=== PATIENT | female | born 1955 | race Caucasian/White ===

== ENCOUNTER 2016-12-01 17:58 | Emergency (ER) | payer MEDICAID ==
[~2016-12-01] VITALS: Ht 162.6 cm; Wt 71.2 kg
[~2016-12-01 17:58] MED LIST: ALEN35TA6 PO; CEFD300C2 PO; LACT1CAP24 PO; LISI-167 PO; NAPR500T3 PO; OXYC5TAB3 PO
[2016-12-01 18:34] LABS: BLOOD UREA NITROGEN 21 mg/dL (7-18)
[2016-12-01 19:26] VITALS: BP 162/76
== END 2016-12-01 19:55 | disposition home or self-care (01) ==
LOC: ED 18:49
DX: I89.0 Lymphedema, not elsewhere classified (principal); J44.9 Chronic obstructive pulmonary disease, unspecified; M54.9 Dorsalgia, unspecified; G89.29 Other chronic pain; I12.9 Hypertensive chronic kidney disease with stage 1 through stage 4 chronic kidney disease, or unspecified chronic kidney disease; N18.9 Chronic kidney disease, unspecified; F17.200 Nicotine dependence, unspecified, uncomplicated
CPT/HCPCS: 36415; 80048; 82040; 85025

== ENCOUNTER 2016-12-18 10:51 | Day surgery (SDC) | payer MEDICAID ==
[~2016-12-18] VITALS: Ht 165.1 cm; Wt 66.5 kg
[~2016-12-18 10:51] MED LIST changes: -CEFD300C2 PO; +CEFD300C37 PO
[2016-12-18] MEDS ORDERED: LACTATED RINGERS 1,000 ML IV SCH (11:57)
[2016-12-18 12:19] VITALS: BP 129/79
[2016-12-18] MEDS ORDERED: SODIUM CHLORIDE 0.9% IV ONE (12:30)
[2016-12-18] MEDS ORDERED: MITOMYCIN IV ONE (12:30)
[2016-12-18] MEDS ORDERED: FENTANYL PF 250 MCG/5ML ONE (13:01)
[2016-12-18] MEDS ORDERED: MIDAZOLAM 1 MG/ML, 2ML ONE (13:01)
[2016-12-18] MEDS ORDERED: PROPOFOL 10 MG/ML, 20ML ONE (13:15)
[2016-12-18] MEDS ORDERED: ONDANSETRON 2MG/ML, 2ML ONE (13:15)
[2016-12-18] MEDS ORDERED: DEXAMETHASONE 4 MG/ML, 1ML ONE (13:15)
[2016-12-18] MEDS ORDERED: CEFAZOLIN 1,000 MG ONE (13:15)
[2016-12-18] MEDS ORDERED: KETAMINE 10 MG/ML, 20ML ONE (13:52)
[2016-12-18] MEDS ORDERED: OXYcodone 5 MG/5 ML ORAL.SOL UDC ONE (14:25)
[2016-12-18] MEDS ORDERED: ACETAMINOPHEN 650 MG/20.3 ML UDC ONE (14:25)
[2016-12-18] MEDS ORDERED: OPIUM/BELLADONNA SUPP.RECT 16.2-60 MG ONE (14:25)
[2016-12-18] MEDS ORDERED: FENTANYL PF 100 MCG/2ML ONE (14:25)
[2016-12-18] MEDS: FENTANYL PF 100 MCG/2ML IV PRN ×2 (14:26→14:35)
[2016-12-18] MEDS ORDERED: ACETAMINOPHEN 325 MG TABLET PO PRN (14:30)
[2016-12-18] MEDS ORDERED: OXYcodone 5 MG/5 ML ORAL.SOL UDC PO PRN (14:30)
[2016-12-18] MEDS ORDERED: PROMETHAZINE 25 MG/ML, 1ML IV PRN (14:30)
[2016-12-18] MEDS ORDERED: hydrALAzine 20 MG/ML, 1ML IV PRN (14:30)
[2016-12-18] MEDS ORDERED: HYDROmorphone 1 MG/ML, 1ML IV PRN (14:30)
[2016-12-18] MEDS ORDERED: OPIUM/BELLADONNA SUPP.RECT 16.2-60 MG PR ONE (15:00)
[2016-12-18] MEDS ORDERED: hydrALAzine 20 MG/ML, 1ML ONE (15:13)
== END 2016-12-18 18:00 | disposition home or self-care (01) ==
LOC: OUT 10:51
PROVIDERS: ATTEND Urology
DX: C67.1 Malignant neoplasm of dome of bladder (principal); N13.2 Hydronephrosis with renal and ureteral calculous obstruction; I10 Essential (primary) hypertension; M81.0 Age-related osteoporosis without current pathological fracture; Z88.0 Allergy status to penicillin; F17.210 Nicotine dependence, cigarettes, uncomplicated; Z90.710 Acquired absence of both cervix and uterus
CPT/HCPCS: 50389; 51720; 52240; 52332; 74000; 76000; 88304; 88305; 93005; C1769; C2617; J0360; J0690; J1100; J2250; J2405; J2704; J3010; J7120

== ENCOUNTER 2016-12-27 08:52 | Inpatient (IN) | payer MEDICAID ==
[~2016-12-27] VITALS: Ht 165.1 cm; Wt 68.7 kg
[2016-12-27] MEDS ORDERED: SODIUM CHLORIDE 0.9% 1,000 ML IV ONE (09:05)
[2016-12-27] MEDS ORDERED: ONDANSETRON 2MG/ML, 2ML ONE (09:22)
[2016-12-27] MEDS ORDERED: MORPHINE SULFATE 4 MG/ML, 1ML ONE ×2 (09:22→10:57)
[2016-12-27] MEDS: MORPHINE SULFATE 4 MG/ML, 1ML IVPush PRN ×2 (09:23→10:58)
[2016-12-27] MEDS ORDERED: ONDANSETRON 2MG/ML, 2ML IVPush ONE (09:30)
[2016-12-27] MEDS ORDERED: SODIUM CHLORIDE FLUSH 10ML SYR IVF ONE (09:30)
[2016-12-27 09:48] LABS: BLOOD UREA NITROGEN 19 mg/dL (7-18)
[2016-12-27 10:10] LABS: PATH.CAST-FLAG NOT PRESENT; SPERM-FLAG NOT PRESENT; SRC-FLAG NOT PRESENT; XTAL-FLAG NOT PRESENT; YLC-FLAG NOT PRESENT
[2016-12-27] MEDS ORDERED: CEFTRIAXONE PMX 1GM/50ML 50 ML ONE (10:52)
[2016-12-27] MEDS ORDERED: CEFTRIAXONE PMX 1GM/50ML 50 ML IV ONE (11:00)
[2016-12-27] MEDS ORDERED: DOCUSATE 100 MG CAPSULE PO PRN (13:00)
[2016-12-27] MEDS ORDERED: HEPARIN 5,000 UNITS/ML, 1ML SQ SCH (13:00)
[2016-12-27] MEDS ORDERED: ONDANSETRON ODT 4 MG PO PRN (13:00)
[2016-12-27] MEDS ORDERED: LABETALOL 5MG/ML, 20ML IVPush PRN (13:00)
[2016-12-27] MEDS ORDERED: ONDANSETRON 2MG/ML, 2ML IVPush PRN (13:00)
[2016-12-27] MEDS ORDERED: POLYETHYLENE GLYCOL 17 GM PACKET PO PRN (13:00)
[2016-12-27] MEDS ORDERED: BISACODYL 10 MG SUPP PR PRN (13:00)
[2016-12-27] MEDS: POTASSIUM CHLORIDE 10 MEQ in SODIUM CHLORIDE 0.9% 1,000 ML IV SCH (14:44)
[2016-12-27] MEDS: CEFTRIAXONE PMX 1GM/50ML 50 ML IV SCH (14:45)
[2016-12-27] MEDS: morphine SULFATE 10 MG/ML, 1ML IVPush PRN (14:54)
[2016-12-27 17:06] VITALS: BP 109/63
[2016-12-27 19:36] VITALS: BP 121/68
[2016-12-27] MEDS: OXYcodone IR 5MG TABLET PO PRN (19:38)
[2016-12-27] MEDS: HEPARIN 5,000 UNITS/ML, 1ML SQ SCH (21:42)
[2016-12-28 01:36] VITALS: BP 119/53
[2016-12-28] MEDS: OXYcodone IR 5MG TABLET PO PRN (01:47)
[2016-12-28] MEDS: POTASSIUM CHLORIDE 10 MEQ in SODIUM CHLORIDE 0.9% 1,000 ML IV SCH (01:54)
[2016-12-28 06:10] LABS: BLOOD UREA NITROGEN 20 mg/dL (7-18)
[2016-12-28] MEDS ORDERED: MORPHINE SULFATE 4 MG/ML, 1ML ONE (06:10)
[2016-12-28] MEDS: morphine SULFATE 10 MG/ML, 1ML IVPush PRN ×3 (06:13→18:55)
[2016-12-28 07:34] VITALS: BP 117/56
[2016-12-28] MEDS: HEPARIN 5,000 UNITS/ML, 1ML SQ SCH ×3 (09:33→22:01)
[2016-12-28] MEDS ORDERED: FUROSEMIDE 20 MG/2 ML ONE (10:01)
[2016-12-28 19:14] VITALS: BP 118/75
[2016-12-29] MEDS: morphine SULFATE 10 MG/ML, 1ML IVPush PRN (01:09)
[2016-12-29 01:18] VITALS: BP 118/73
[2016-12-29] MEDS: OXYcodone IR 5MG TABLET PO PRN ×3 (06:31→22:59)
[2016-12-29] MEDS: HEPARIN 5,000 UNITS/ML, 1ML SQ SCH ×3 (07:00→23:23)
[2016-12-29 07:56] VITALS: BP 116/72
[2016-12-29 08:00] LABS: BLOOD UREA NITROGEN 20 mg/dL (7-18)
[2016-12-29] MEDS ORDERED: LIDOCAINE 1%, 20ML ONE (13:38)
[2016-12-29] MEDS ORDERED: MIDAZOLAM 1 MG/ML, 5ML ONE (13:49)
[2016-12-29] MEDS ORDERED: FENTANYL PF 100 MCG/2ML ONE (13:49)
[2016-12-29] MEDS ORDERED: NALOXONE 1 MG/ML, 2ML ONE (13:49)
[2016-12-29] MEDS ORDERED: FLUMAZENIL 0.1 MG/1 ML, 5ML ONE (13:50)
[2016-12-29] MEDS ORDERED: VISIPAQUE 270 MG/ML, 50ML BOTTLE ONE (14:25)
[2016-12-29 15:14] VITALS: BP 115/75
[2016-12-29] MEDS: CEFTRIAXONE PMX 1GM/50ML 50 ML IV SCH (16:58)
[2016-12-29 20:00] VITALS: BP 114/64
[2016-12-30 01:14] VITALS: BP 114/67
[2016-12-30] MEDS: OXYcodone IR 5MG TABLET PO PRN ×3 (05:58→14:42)
[2016-12-30 07:50] VITALS: BP 102/56
[2016-12-30] MEDS: HEPARIN 5,000 UNITS/ML, 1ML SQ SCH (07:54)
[2016-12-30] MEDS ORDERED: CEFD300C37 PO (11:39)
[2016-12-30] MEDS ORDERED: OXYC5TAB3 PO (11:39)
[2016-12-30] MEDS: CEFTRIAXONE PMX 1GM/50ML 50 ML IV SCH (13:25)
== END 2016-12-30 15:50 | disposition home or self-care (01) | DRG 699 ==
LOC: ED 09:33 → EDIP 11:21 → 3NE 12:45 → 3NW 17:02 → DCLOUNGE 12-30 15:03
PROVIDERS: ADMIT Internal Medicine; ATTEND Internal Medicine
PROC: 0T9330Z Drainage of Right Kidney Pelvis with Drainage Device, Percutaneous Approach (ICD-10-PCS; principal; 2016-12-29)
DX: T83.112A Breakdown (mechanical) of indwelling ureteral stent, initial encounter (principal); N39.0 Urinary tract infection, site not specified; N13.30 Unspecified hydronephrosis; N18.4 Chronic kidney disease, stage 4 (severe); C67.9 Malignant neoplasm of bladder, unspecified; J44.9 Chronic obstructive pulmonary disease, unspecified; I12.9 Hypertensive chronic kidney disease with stage 1 through stage 4 chronic kidney disease, or unspecified chronic kidney disease; M81.0 Age-related osteoporosis without current pathological fracture; G89.29 Other chronic pain; Y83.8 Other surgical procedures as the cause of abnormal reaction of the patient, or of later complication, without mention of misadventure at the time of the procedure; Z80.52 Family history of malignant neoplasm of bladder; Z87.891 Personal history of nicotine dependence; Z90.710 Acquired absence of both cervix and uterus; Z80.1 Family history of malignant neoplasm of trachea, bronchus and lung; Z88.0 Allergy status to penicillin; Z79.899 Other long term (current) drug therapy; Y92.89 Other specified places as the place of occurrence of the external cause
CPT/HCPCS: 36415; 50432; 74176; 78708; 80048; 81001; 82040; 85025; 87086; 96361; 96365; 96375; 99156; 99157; C1894; J0696; J1644; J2250; J2405; J3010; J3480; J3490; Q9966; A9562; C1729; C1769; C9898; J1940; J2270; J2310; J7030

== ENCOUNTER 2017-01-14 18:06 | Emergency (ER) | payer MEDICAID ==
[~2017-01-14] VITALS: Ht 162.6 cm; Wt 62.3 kg
[2017-01-14] MEDS ORDERED: SODIUM CHLORIDE 0.9% 1,000 ML IV ONE (18:33)
[2017-01-14] MEDS ORDERED: MORPHINE SULFATE 4 MG/ML, 1ML ONE ×2 (18:57→19:44)
[2017-01-14] MEDS ORDERED: ONDANSETRON 2MG/ML, 2ML ONE (18:57)
[2017-01-14 19:00] LABS: BLOOD UREA NITROGEN 20 mg/dL (7-18)
[2017-01-14] MEDS ORDERED: ONDANSETRON 2MG/ML, 2ML IVPush ONE (19:00)
[2017-01-14] MEDS ORDERED: SODIUM CHLORIDE 0.9% 1,000ML IVBOLUS ONE (19:00)
[2017-01-14] MEDS: MORPHINE SULFATE 4 MG/ML, 1ML IVPush PRN ×2 (19:13→19:48)
[2017-01-14] MEDS ORDERED: HYDROmorphone 1 MG/ML, 1ML ONE (19:59)
[2017-01-14] MEDS ORDERED: HYDROmorphone 1 MG/ML, 1ML IVPush PRN (20:00)
[2017-01-14 23:39] VITALS: BP 136/81
== END 2017-01-14 23:41 | disposition home or self-care (01) ==
LOC: ED 21:26
DX: N20.1 Calculus of ureter (principal); R33.9 Retention of urine, unspecified; Z85.51 Personal history of malignant neoplasm of bladder; E11.9 Type 2 diabetes mellitus without complications; J44.9 Chronic obstructive pulmonary disease, unspecified; I10 Essential (primary) hypertension; Z90.710 Acquired absence of both cervix and uterus; N19 Unspecified kidney failure
CPT/HCPCS: 36415; 74020; 76770; 80048; 81001; 82040; 85025; 87086; 96361; 96374; 96375; 96376; 99285; J1170; J2405; J7030

== ENCOUNTER 2017-01-24 14:54 | Emergency (ER) | payer MEDICAID ==
[~2017-01-24] VITALS: Ht 162.6 cm; Wt 59.3 kg
[2017-01-24] MEDS ORDERED: HYDROmorphone 1 MG/ML, 1ML ONE ×2 (15:14→17:57)
[2017-01-24] MEDS: HYDROmorphone 1 MG/ML, 1ML IVPush PRN ×2 (15:24→18:01)
[2017-01-24] MEDS ORDERED: SODIUM CHLORIDE 0.9% 1,000ML IVBOLUS ONE (15:30)
[2017-01-24] MEDS ORDERED: PLEASE ENTER HEIGHT AND WEIGHT MC SCH (15:30)
[2017-01-24] MEDS ORDERED: SODIUM CHLORIDE FLUSH 10ML SYR IVF ONE (15:30)
[2017-01-24 15:36] LABS: BLOOD UREA NITROGEN 21 mg/dL (7-18)
[2017-01-24 15:40] LABS: ASPARTATE AMINO TRANSFERASE 41 U/L (15-37)
[2017-01-24] MEDS ORDERED: CEFD300C37 PO (16:45)
[2017-01-24 18:57] VITALS: BP 152/80
== END 2017-01-24 20:03 | disposition home or self-care (01) ==
LOC: ED 16:25
DX: G89.18 Other acute postprocedural pain (principal); R10.9 Unspecified abdominal pain; E11.9 Type 2 diabetes mellitus without complications; I10 Essential (primary) hypertension; J44.9 Chronic obstructive pulmonary disease, unspecified
CPT/HCPCS: 36415; 50431; 74000; 76770; 80053; 83690; 85025; 85610; 96361; 96374; 96376; 99285; J1170; J7030

== ENCOUNTER 2017-02-14 07:09 | Inpatient (IN) | payer MEDICAID ==
[~2017-02-14] VITALS: Ht 165.1 cm; Wt 61.0 kg
[2017-02-14] MEDS ORDERED: MORPHINE SULFATE 4 MG/ML, 1ML ONE ×2 (07:58→09:12)
[2017-02-14] MEDS ORDERED: ONDANSETRON 2MG/ML, 2ML ONE (07:59)
[2017-02-14] MEDS ORDERED: ONDANSETRON 2MG/ML, 2ML IVPush ONE (08:00)
[2017-02-14] MEDS ORDERED: SODIUM CHLORIDE 0.9% 1,000ML IVBOLUS ONE ×3 (08:00→20:00)
[2017-02-14] MEDS ORDERED: SODIUM CHLORIDE FLUSH 10ML SYR IVF ONE (08:00)
[2017-02-14] MEDS: MORPHINE SULFATE 4 MG/ML, 1ML IVPush PRN ×2 (08:01→09:18)
[2017-02-14 08:32] LABS: ASPARTATE AMINO TRANSFERASE 37 U/L (15-37); BLOOD UREA NITROGEN 30 mg/dL (7-18)
[2017-02-14] MEDS ORDERED: CEFTRIAXONE PMX 1GM/50ML 50 ML IV ONE (09:00)
[2017-02-14] MEDS ORDERED: CEFTRIAXONE PMX 1GM/50ML 50 ML ONE (09:12)
[2017-02-14] MEDS ORDERED: VISIPAQUE 270 MG/ML, 50ML BOTTLE ONE (09:30)
[2017-02-14] MEDS ORDERED: OXYC15TA PO (09:47)
[2017-02-14] MEDS ORDERED: METH5TAB2 PO (09:47)
[2017-02-14] MEDS ORDERED: LIDOCAINE 1%, 20ML ONE (09:57)
[2017-02-14] MEDS ORDERED: MIDAZOLAM 1 MG/ML, 5ML ONE (10:23)
[2017-02-14] MEDS ORDERED: FLUMAZENIL 0.1 MG/1 ML, 5ML ONE (10:23)
[2017-02-14] MEDS ORDERED: FENTANYL PF 100 MCG/2ML ONE (10:23)
[2017-02-14] MEDS ORDERED: NALOXONE 1 MG/ML, 2ML ONE (10:23)
[2017-02-14] MEDS ORDERED: ACETAMINOPHEN 325 MG TABLET PO ONE (15:30)
[2017-02-14] MEDS ORDERED: SODIUM CHLORIDE 0.9% 1,000 ML IV ONE (15:32)
[2017-02-14] MEDS ORDERED: SODIUM CHLORIDE FLUSH 10ML SYR IVF PRN (16:00)
[2017-02-14] MEDS ORDERED: ACETAMINOPHEN 325 MG TABLET ONE (16:32)
[2017-02-14] MEDS ORDERED: BISACODYL 10 MG SUPP PR PRN (17:00)
[2017-02-14] MEDS: SODIUM CHLORIDE 0.9% 1,000 ML IV SCH ×2 (17:00→23:40)
[2017-02-14] MEDS ORDERED: TEMAZEPAM 15 MG CAPSULE PO PRN (17:00)
[2017-02-14] MEDS ORDERED: CEFTRIAXONE PMX 1GM/50ML 50 ML IV SCH (17:00)
[2017-02-14] MEDS ORDERED: ENALAPRILAT 1.25 MG/ML, 2ML IVPush PRN ×2 (17:00→21:17)
[2017-02-14] MEDS ORDERED: POLYETHYLENE GLYCOL 17 GM PACKET PO PRN (17:00)
[2017-02-14] MEDS ORDERED: hydrALAzine 20 MG/ML, 1ML IVPush PRN (17:00)
[2017-02-14] MEDS ORDERED: ONDANSETRON 2MG/ML, 2ML IVPush PRN (17:00)
[2017-02-14] MEDS ORDERED: ACETAMINOPHEN 325 MG TABLET PO PRN (17:00)
[2017-02-14 20:50] VITALS: BP 111/58
[2017-02-14] MEDS: CEFTRIAXONE PMX 1GM/50ML 50 ML IV SCH (21:14)
[2017-02-15] MEDS: OXYcodone IR 5MG TABLET PO PRN ×4 (00:16→19:36)
[2017-02-15 02:50] VITALS: BP 117/65
[2017-02-15] MEDS: morphine SULFATE 10 MG/ML, 1ML IVPush PRN ×5 (04:23→20:27)
[2017-02-15 05:42] LABS: ASPARTATE AMINO TRANSFERASE 31 U/L (15-37); BLOOD UREA NITROGEN 25 mg/dL (7-18)
[2017-02-15 07:46] VITALS: BP 122/68
[2017-02-15] MEDS: SODIUM CHLORIDE 0.9% 1,000 ML IV SCH ×2 (08:14→15:02)
[2017-02-15] MEDS: CEFTRIAXONE PMX 1GM/50ML 50 ML IV SCH ×2 (08:23→19:36)
[2017-02-15] MEDS: SENNA/DOCUSATE TABLET PO SCH (08:23)
[2017-02-15] MEDS ORDERED: METHADONE 5 MG TABLET PO PRN (09:30)
[2017-02-15 12:37] VITALS: BP 125/74
[2017-02-15] MEDS ORDERED: METO50TA82 PO (14:27)
[2017-02-15] MEDS ORDERED: CEFD300C37 PO (14:29)
[2017-02-15] MEDS ORDERED: DOXY100C2 PO (14:29)
[2017-02-15] MEDS ORDERED: PRED5TAB19 PO (14:35)
[2017-02-15] MEDS ORDERED: LACT1CAP35 PO (14:36)
[2017-02-15] MEDS ORDERED: IPRA3AMP INH (14:38)
[2017-02-15] MEDS ORDERED: MAGNESIUM CITRATE 300ML ORAL SOL PO ONE (16:30)
[2017-02-15 19:30] VITALS: BP 110/67
[2017-02-15] MEDS ORDERED: ACETAMINOPHEN 325 MG TABLET PO PRN (19:30)
[2017-02-15] MEDS ORDERED: POLYETHYLENE GLYCOL 17 GM PACKET PO PRN (19:30)
[2017-02-15] MEDS: HEPARIN 5,000 UNITS/ML, 1ML SQ SCH (19:36)
[2017-02-15] MEDS ORDERED: ACETAMINOPHEN 325 MG TABLET PO ONE (20:00)
[2017-02-15 22:46] VITALS: BP 120/76
[2017-02-16] VITALS (8 sets, daily range): BP systolic 110–141; BP diastolic 71–89
[2017-02-16] MEDS: OXYcodone IR 5MG TABLET PO PRN (00:09)
[2017-02-16] MEDS: SODIUM CHLORIDE 0.9% 1,000 ML IV SCH ×3 (03:34→20:30)
[2017-02-16] MEDS: morphine SULFATE 10 MG/ML, 1ML IVPush PRN ×5 (04:27→21:19)
[2017-02-16 04:53] LABS: BLOOD UREA NITROGEN 19 mg/dL (7-18)
[2017-02-16] MEDS: HEPARIN 5,000 UNITS/ML, 1ML SQ SCH ×3 (08:40→20:29)
[2017-02-16] MEDS: CEFTRIAXONE PMX 1GM/50ML 50 ML IV SCH ×2 (08:40→20:29)
[2017-02-16] MEDS: SENNA/DOCUSATE TABLET PO SCH (08:40)
[2017-02-16] MEDS: CALCIUM CARBONATE 500 MG TAB.CHEW PO PRN ×2 (10:25→18:04)
[2017-02-16] MEDS: METHADONE 5 MG TABLET PO SCH ×2 (12:27→20:29)
[2017-02-16] MEDS: ONDANSETRON 2MG/ML, 2ML IVPush PRN (13:35)
[2017-02-16] MEDS ORDERED: METHADONE 5 MG TABLET PO PRN (15:00)
[2017-02-16] MEDS: BISACODYL 10 MG SUPP PR PRN (21:19)
[2017-02-17] MEDS: morphine SULFATE 10 MG/ML, 1ML IVPush PRN ×5 (00:29→23:00)
[2017-02-17 02:54] VITALS: BP 132/77
[2017-02-17] MEDS: METHADONE 5 MG TABLET PO SCH ×3 (04:36→21:14)
[2017-02-17] MEDS: ONDANSETRON 2MG/ML, 2ML IVPush PRN (04:40)
[2017-02-17 04:50] LABS: BLOOD UREA NITROGEN 12 mg/dL (7-18)
[2017-02-17 06:40] LABS: OCCBLD OBC PASS
[2017-02-17 07:45] VITALS: BP 149/85
[2017-02-17] MEDS: HEPARIN 5,000 UNITS/ML, 1ML SQ SCH ×2 (08:15→21:14)
[2017-02-17] MEDS: SENNA/DOCUSATE TABLET PO SCH (08:15)
[2017-02-17 11:44] LABS: PATH.CAST-FLAG NOT PRESENT; SPERM-FLAG NOT PRESENT; SRC-FLAG NOT PRESENT; XTAL-FLAG NOT PRESENT; YLC-FLAG NOT PRESENT
[2017-02-17] MEDS: OXYcodone IR 5MG TABLET PO PRN (11:50)
[2017-02-17] MEDS: CEFTRIAXONE PMX 1GM/50ML 50 ML IV SCH ×2 (12:12→23:39)
[2017-02-17 13:55] VITALS: BP 118/72
[2017-02-17 19:38] VITALS: BP 122/76
[2017-02-17] MEDS: BISACODYL 10 MG SUPP PR PRN (23:01)
[2017-02-18 02:08] VITALS: BP 122/81
[2017-02-18] MEDS: morphine SULFATE 10 MG/ML, 1ML IVPush PRN ×5 (02:56→19:19)
[2017-02-18 04:54] LABS: BLOOD UREA NITROGEN 10 mg/dL (7-18)
[2017-02-18] MEDS: METHADONE 5 MG TABLET PO SCH ×4 (04:54→22:12)
[2017-02-18 06:41] VITALS: BP 144/84
[2017-02-18] MEDS: HEPARIN 5,000 UNITS/ML, 1ML SQ SCH ×2 (08:04→22:12)
[2017-02-18] MEDS: SENNA/DOCUSATE TABLET PO SCH (08:04)
[2017-02-18] MEDS: CEFTRIAXONE PMX 1GM/50ML 50 ML IV SCH (11:15)
[2017-02-18 13:20] VITALS: BP 127/79
[2017-02-18] MEDS: OXYcodone IR 5MG TABLET PO PRN (15:17)
[2017-02-18] MEDS: AMPICILLIN/SULBACTAM 3 GM in SODIUM CHLORIDE 0.9% 100 ML IV SCH ×2 (15:18→22:12)
[2017-02-18 20:39] VITALS: BP 124/76
[2017-02-18 20:40] VITALS: BP 144/71
[2017-02-19] MEDS: OXYcodone IR 5MG TABLET PO PRN ×4 (00:32→20:40)
[2017-02-19 02:23] VITALS: BP 144/86
[2017-02-19] MEDS: morphine SULFATE 10 MG/ML, 1ML IVPush PRN ×3 (02:30→16:23)
[2017-02-19] MEDS: METHADONE 5 MG TABLET PO SCH ×4 (04:39→22:56)
[2017-02-19] MEDS: AMPICILLIN/SULBACTAM 3 GM in SODIUM CHLORIDE 0.9% 100 ML IV SCH ×3 (04:39→20:39)
[2017-02-19 06:36] VITALS: BP 133/84
[2017-02-19] MEDS: HEPARIN 5,000 UNITS/ML, 1ML SQ SCH ×2 (09:16→20:39)
[2017-02-19] MEDS: SENNA/DOCUSATE TABLET PO SCH (09:17)
[2017-02-19 14:27] VITALS: BP 142/79
[2017-02-19 18:44] VITALS: BP 133/75
[2017-02-20 01:44] VITALS: BP 138/84
[2017-02-20] MEDS: OXYcodone IR 5MG TABLET PO PRN ×2 (02:05→07:58)
[2017-02-20] MEDS: METHADONE 5 MG TABLET PO SCH ×4 (04:45→22:13)
[2017-02-20] MEDS: AMPICILLIN/SULBACTAM 3 GM in SODIUM CHLORIDE 0.9% 100 ML IV SCH ×3 (04:45→22:13)
[2017-02-20 07:17] VITALS: BP 125/73
[2017-02-20] MEDS: SENNA/DOCUSATE TABLET PO SCH (08:01)
[2017-02-20] MEDS: HEPARIN 5,000 UNITS/ML, 1ML SQ SCH ×2 (10:06→22:13)
[2017-02-20 12:24] VITALS: BP 120/74
[2017-02-20 19:13] VITALS: BP 120/77
[2017-02-20] MEDS: morphine SULFATE 10 MG/ML, 1ML IVPush PRN (19:57)
[2017-02-21 02:08] VITALS: BP 108/68
[2017-02-21] MEDS: OXYcodone IR 5MG TABLET PO PRN ×2 (02:30→13:17)
[2017-02-21] MEDS: METHADONE 5 MG TABLET PO SCH ×4 (05:24→21:54)
[2017-02-21] MEDS: AMPICILLIN/SULBACTAM 3 GM in SODIUM CHLORIDE 0.9% 100 ML IV SCH ×3 (05:24→21:54)
[2017-02-21 06:54] VITALS: BP 104/66
[2017-02-21] MEDS: HEPARIN 5,000 UNITS/ML, 1ML SQ SCH ×2 (10:11→21:54)
[2017-02-21] MEDS: SENNA/DOCUSATE TABLET PO SCH (10:11)
[2017-02-21 12:32] VITALS: BP 142/74
[2017-02-21 19:38] VITALS: BP 115/68
[2017-02-21] MEDS ORDERED: BISACODYL 10 MG SUPP PR PRN ×2 (21:00)
[2017-02-21] MEDS ORDERED: ONDANSETRON 2MG/ML, 2ML IVPush PRN ×2 (21:00)
[2017-02-21] MEDS ORDERED: ACETAMINOPHEN 325 MG TABLET PO PRN ×2 (21:00)
[2017-02-21] MEDS ORDERED: POLYETHYLENE GLYCOL 17 GM PACKET PO PRN ×2 (21:00)
[2017-02-21] MEDS ORDERED: TEMAZEPAM 15 MG CAPSULE PO PRN (21:00)
[2017-02-21] MEDS ORDERED: hydrALAzine 20 MG/ML, 1ML IVPush PRN (21:00)
[2017-02-21] MEDS ORDERED: ENALAPRILAT 1.25 MG/ML, 2ML IVPush PRN (21:00)
[2017-02-22 02:15] VITALS: BP 124/70
[2017-02-22] MEDS: METHADONE 5 MG TABLET PO SCH ×4 (05:08→22:16)
[2017-02-22] MEDS: AMPICILLIN/SULBACTAM 3 GM in SODIUM CHLORIDE 0.9% 100 ML IV SCH ×3 (05:09→21:26)
[2017-02-22 07:25] VITALS: BP 108/67
[2017-02-22] MEDS: SENNA/DOCUSATE TABLET PO SCH (09:49)
[2017-02-22] MEDS: HEPARIN 5,000 UNITS/ML, 1ML SQ SCH ×2 (09:49→21:27)
[2017-02-22 13:05] VITALS: BP 109/71
[2017-02-22 18:40] VITALS: BP 104/69
[2017-02-23 01:16] VITALS: BP 121/71
[2017-02-23] MEDS: METHADONE 5 MG TABLET PO SCH ×4 (04:03→21:24)
[2017-02-23] MEDS: AMPICILLIN/SULBACTAM 3 GM in SODIUM CHLORIDE 0.9% 100 ML IV SCH ×3 (05:30→21:25)
[2017-02-23 07:24] VITALS: BP 102/66
[2017-02-23] MEDS ORDERED: ONDANSETRON 8 MG, DEXAMETHASONE 12 MG in SODIUM CHLORIDE 0.9% 50 ML IVPB ONE (09:30)
[2017-02-23] MEDS: SENNA/DOCUSATE TABLET PO SCH (09:39)
[2017-02-23] MEDS: HEPARIN 5,000 UNITS/ML, 1ML SQ SCH ×2 (09:39→21:25)
[2017-02-23 09:47] LABS: BLOOD UREA NITROGEN 11 mg/dL (7-18)
[2017-02-23 09:51] LABS: ASPARTATE AMINO TRANSFERASE 58 U/L (15-37)
[2017-02-23] MEDS ORDERED: GEMCITABINE HCL IV ONE (10:00)
[2017-02-23] MEDS ORDERED: SODIUM CHLORIDE 0.9% IV ONE (10:00)
[2017-02-23 13:32] VITALS: BP 118/72
[2017-02-23 19:19] VITALS: BP 118/72
[2017-02-23] MEDS: CALCIUM CARBONATE 500 MG TAB.CHEW PO PRN (22:36)
[2017-02-24 02:27] VITALS: BP 113/71
[2017-02-24] MEDS: METHADONE 5 MG TABLET PO SCH ×4 (03:56→22:01)
[2017-02-24] MEDS: AMPICILLIN/SULBACTAM 3 GM in SODIUM CHLORIDE 0.9% 100 ML IV SCH ×3 (05:00→22:00)
[2017-02-24 05:51] LABS: BLOOD UREA NITROGEN 17 mg/dL (7-18)
[2017-02-24 07:36] VITALS: BP 103/61
[2017-02-24] MEDS: HEPARIN 5,000 UNITS/ML, 1ML SQ SCH ×2 (09:09→22:00)
[2017-02-24] MEDS: SENNA/DOCUSATE TABLET PO SCH (09:09)
[2017-02-24 13:15] VITALS: BP 100/66
[2017-02-24 19:00] VITALS: BP 123/74
[2017-02-25 02:16] VITALS: BP 102/61
[2017-02-25 04:52] LABS: BLOOD UREA NITROGEN 24 mg/dL (7-18)
[2017-02-25 04:57] LABS: ASPARTATE AMINO TRANSFERASE 101 U/L (15-37)
[2017-02-25] MEDS: METHADONE 5 MG TABLET PO SCH ×4 (05:28→23:26)
[2017-02-25] MEDS: AMPICILLIN/SULBACTAM 3 GM in SODIUM CHLORIDE 0.9% 100 ML IV SCH ×3 (05:28→21:27)
[2017-02-25 06:30] VITALS: BP 92/56
[2017-02-25] MEDS: SENNA/DOCUSATE TABLET PO SCH (11:42)
[2017-02-25] MEDS: HEPARIN 5,000 UNITS/ML, 1ML SQ SCH ×2 (11:43→23:26)
[2017-02-25] MEDS: CALCIUM CARBONATE 500 MG TAB.CHEW PO PRN (16:30)
[2017-02-25 18:55] VITALS: BP 96/63
[2017-02-26 02:35] VITALS: BP 108/70
[2017-02-26 05:02] LABS: ASPARTATE AMINO TRANSFERASE 120 U/L (15-37); BLOOD UREA NITROGEN 18 mg/dL (7-18)
[2017-02-26] MEDS: METHADONE 5 MG TABLET PO SCH ×3 (05:56→15:45)
[2017-02-26] MEDS: AMPICILLIN/SULBACTAM 3 GM in SODIUM CHLORIDE 0.9% 100 ML IV SCH ×2 (05:57→13:20)
[2017-02-26 07:20] VITALS: BP 96/63
[2017-02-26 08:05] LABS: TOTAL IRON BINDING CAPACITY 213 mcg/dL (250-450)
[2017-02-26] MEDS: SENNA/DOCUSATE TABLET PO SCH (08:38)
[2017-02-26 09:43] LABS: HEPATITIS C VIRUS ANTIBODY Nonreactive (Nonreactive)
[2017-02-26] MEDS: HEPARIN 5,000 UNITS/ML, 1ML SQ SCH (10:12)
[2017-02-26 13:17] VITALS: BP 90/54
[2017-02-26] MEDS ORDERED: AMPI3VIA IV (16:04)
== END 2017-02-26 18:00 | DRG 871 ==
LOC: ED 07:26 → EDIP 15:32 → 3NW 17:59
PROVIDERS: ADMIT Internal Medicine; ATTEND Internal Medicine
PROC: 0T25X0Z Change Drainage Device in Kidney, External Approach (ICD-10-PCS; principal; 2017-02-14)
PROC: 0T9B70Z Drainage of Bladder with Drainage Device, Via Natural or Artificial Opening (ICD-10-PCS; 2017-02-14)
PROC: 30233N1 Transfusion of Nonautologous Red Blood Cells into Peripheral Vein, Percutaneous Approach (ICD-10-PCS; 2017-02-15)
DX: A41.9 Sepsis, unspecified organism (principal); N17.0 Acute kidney failure with tubular necrosis; E43 Unspecified severe protein-calorie malnutrition; N18.4 Chronic kidney disease, stage 4 (severe); N39.0 Urinary tract infection, site not specified; N13.30 Unspecified hydronephrosis; C67.9 Malignant neoplasm of bladder, unspecified; I12.9 Hypertensive chronic kidney disease with stage 1 through stage 4 chronic kidney disease, or unspecified chronic kidney disease; K59.00 Constipation, unspecified; M81.0 Age-related osteoporosis without current pathological fracture; N20.0 Calculus of kidney; B95.5 Unspecified streptococcus as the cause of diseases classified elsewhere; D64.9 Anemia, unspecified; D72.819 Decreased white blood cell count, unspecified; G89.29 Other chronic pain; Z90.710 Acquired absence of both cervix and uterus; Z88.0 Allergy status to penicillin; Z87.891 Personal history of nicotine dependence; Z82.49 Family history of ischemic heart disease and other diseases of the circulatory system; Z93.6 Other artificial openings of urinary tract status; Z68.22 Body mass index [BMI] 22.0-22.9, adult
CPT/HCPCS: 36415; 50432; 71010; 74000; 76700; 80048; 80053; 80061; 80074; 81001; 82272; 82550; 83036; 83540; 83550; 83605; 83735; 84100; 84145; 84439; 84443; 85014; 85018; 85025; 86850; 86900; 86923; 87040; 87077; 87086; 87186; 93005; 96361; 96374; 96375; 96376; 99156; 99157; C1894; J0295; J0696; J1100; J1644; J2250; J2405; J3010; J3490; Q9966; C1729; C1769; J2270; J2310; J7030; J7050; J9201; P9016

== ENCOUNTER → 2017-04-08 | Outpatient (CLI) | payer MEDICAID ==
[~2017-04-08] MED LIST changes: +AMPI3VIA IV; +DOXY100C2 PO; +IPRA3AMP INH; +LACT1CAP35 PO; +METH5TAB2 PO; +METO50TA82 PO; +OXYC15TA PO; +PRED5TAB19 PO
== END | disposition home or self-care (01) ==
LOC: CFH 12:41
PROVIDERS: ATTEND Internal Medicine Hematology & Oncology
DX: R22.42 Localized swelling, mass and lump, left lower limb (principal)

== ENCOUNTER 2017-04-17 15:43 | Emergency (ER) | payer MEDICAID ==
[~2017-04-17] VITALS: Ht 165.1 cm; Wt 56.8 kg
[2017-04-17] MEDS ORDERED: SODIUM CHLORIDE FLUSH 10ML SYR IVF ONE (16:00)
[2017-04-17] MEDS ORDERED: ONDANSETRON 2MG/ML, 2ML IVPush ONE (16:00)
[2017-04-17] MEDS ORDERED: HYDROmorphone 1 MG/ML, 1ML ONE ×3 (16:17→18:38)
[2017-04-17] MEDS ORDERED: ONDANSETRON 2MG/ML, 2ML ONE (16:17)
[2017-04-17] MEDS: HYDROmorphone 1 MG/ML, 1ML IVPush PRN ×2 (16:25→18:23)
[2017-04-17 16:29] LABS: HEMATOCRIT 37.2 % (34.6-47.8); HEMOGLOBIN 12.7 g/dL (11.7-16.4); WHITE BLOOD COUNT 4.7 x10^3/uL (3.4-10)
[2017-04-17 16:31] LABS: BLOOD UREA NITROGEN 16 mg/dL (7-18)
[2017-04-17 16:34] LABS: ASPARTATE AMINO TRANSFERASE 53 U/L (15-37)
[2017-04-17] MEDS ORDERED: CEFTRIAXONE PMX 1GM/50ML 50 ML IV ONE (17:30)
[2017-04-17] MEDS ORDERED: CEFTRIAXONE PMX 1GM/50ML 50 ML ONE (17:53)
[2017-04-17] MEDS ORDERED: HYDROmorphone 1 MG/ML, 1ML IVPush PRN (18:30)
[2017-04-17 20:47] VITALS: BP 116/74
[2017-04-20] MEDS ORDERED: CEFD300C37 PO (09:26)
== END 2017-04-17 20:49 | disposition home or self-care (01) ==
LOC: ED 16:11
DX: N30.90 Cystitis, unspecified without hematuria (principal); Z87.442 Personal history of urinary calculi; Z85.51 Personal history of malignant neoplasm of bladder; Z90.710 Acquired absence of both cervix and uterus; Z90.721 Acquired absence of ovaries, unilateral; Z98.890 Other specified postprocedural states; Z88.0 Allergy status to penicillin
CPT/HCPCS: 36415; 74176; 80053; 81001; 83690; 85025; 87077; 87086; 87186; 93005; 96365; 96375; 96376; 99285; J0696; J1170; J2405

== ENCOUNTER → 2017-05-07 | Outpatient (CLI) | payer MEDICAID ==
[2017-05-07 10:19] LABS: HEMATOCRIT 33.3 % (34.6-47.8); HEMOGLOBIN 11.4 g/dL (11.7-16.4); WHITE BLOOD COUNT 2.8 x10^3/uL (3.4-10)
== END | disposition home or self-care (01) ==
LOC: STAR 08:56
PROVIDERS: ATTEND Urology
DX: Z01.818 Encounter for other preprocedural examination (principal); R94.31 Abnormal electrocardiogram [ECG] [EKG]; N20.0 Calculus of kidney; D41.4 Neoplasm of uncertain behavior of bladder; R31.0 Gross hematuria
CPT/HCPCS: 36415; 85025; 85610; 85730; 93005

== ENCOUNTER 2017-05-14 05:49 | Inpatient (IN) | payer MEDICAID ==
[~2017-05-14] VITALS: Ht 162.6 cm; Wt 62.0 kg
[2017-05-14] MEDS ORDERED: LACTATED RINGERS 1,000 ML IV SCH ×2 (06:28→13:00)
[2017-05-14 06:32] VITALS: BP 105/67
[2017-05-14] MEDS ORDERED: LIDOCAINE GEL 2%, 5ML ONE (07:12)
[2017-05-14] MEDS ORDERED: MIDAZOLAM 1 MG/ML, 2ML ONE ×2 (07:12→10:05)
[2017-05-14] MEDS ORDERED: FENTANYL PF 100 MCG/2ML ONE ×4 (07:12→10:05)
[2017-05-14] MEDS ORDERED: DEXAMETHASONE 4 MG/ML, 1ML ONE (07:13)
[2017-05-14] MEDS ORDERED: ONDANSETRON 2MG/ML, 2ML ONE ×2 (07:13→07:32)
[2017-05-14] MEDS ORDERED: PROPOFOL 10 MG/ML, 20ML ONE (07:13)
[2017-05-14] MEDS ORDERED: CEFAZOLIN 1,000 MG ONE (07:13)
[2017-05-14] MEDS ORDERED: LIDOCAINE-MPF 2% ,5ML ONE (07:15)
[2017-05-14] MEDS ORDERED: SUCCINYLCHOLINE 20 MG/ML, 10ML ONE (07:16)
[2017-05-14] MEDS ORDERED: CEFTRIAXONE 1,000 MG ONE (07:40)
[2017-05-14] MEDS ORDERED: METOPROLOL 1 MG/ML, 5ML ONE (08:01)
[2017-05-14] MEDS ORDERED: METOCLOPRAMIDE 5 MG/ML, 2ML IV PRN (08:30)
[2017-05-14] MEDS ORDERED: LORazepam 2 MG/ML, 1ML IVPush PRN (08:30)
[2017-05-14] MEDS ORDERED: DIAZEPAM 5 MG/ML, 2ML IVPush PRN (08:30)
[2017-05-14] MEDS ORDERED: ALBUTEROL/IPRATROPIUM 2.5MG/0.5MG, 3 ML NPPB PRN ×2 (08:30→13:00)
[2017-05-14] MEDS ORDERED: MEPERIDINE/PF 25MG/0.5ML IVPush PRN (08:30)
[2017-05-14] MEDS ORDERED: LABETALOL 5MG/ML, 20ML IV PRN (08:30)
[2017-05-14] MEDS ORDERED: ACETAMINOPHEN 325 MG TABLET PO PRN (08:30)
[2017-05-14] MEDS ORDERED: OXYcodone 5 MG/5 ML ORAL.SOL UDC PO PRN (08:30)
[2017-05-14] MEDS ORDERED: hydrALAzine 20 MG/ML, 1ML IV PRN (08:30)
[2017-05-14] MEDS ORDERED: ONDANSETRON 2MG/ML, 2ML IVPush PRN ×2 (08:30→11:00)
[2017-05-14] MEDS ORDERED: PROMETHAZINE 25 MG/ML, 1ML IV PRN (08:30)
[2017-05-14] MEDS ORDERED: OMNIPAQUE 350 MG/ML, 50 ML BOTTLE ONE (09:55)
[2017-05-14] MEDS ORDERED: ACETAMINOPHEN 650 MG/20.3 ML UDC ONE (10:05)
[2017-05-14] MEDS ORDERED: OXYcodone 5 MG/5 ML ORAL.SOL UDC ONE (10:06)
[2017-05-14] MEDS: MIDAZOLAM 1 MG/ML, 2ML IV PRN ×2 (10:09→10:18)
[2017-05-14] MEDS: FENTANYL PF 100 MCG/2ML IV PRN ×2 (10:09→10:20)
[2017-05-14] MEDS ORDERED: HYDROmorphone 2 MG/ML, 1ML ONE (10:30)
[2017-05-14] MEDS: HYDROmorphone 1 MG/ML, 1ML IV PRN ×2 (10:36→11:04)
[2017-05-14] MEDS ORDERED: HYDROmorphone 2 MG/ML, 1ML IVPush PRN (11:00)
[2017-05-14] MEDS ORDERED: ONDANSETRON ODT 4 MG PO PRN (11:00)
[2017-05-14] MEDS ORDERED: DOCUSATE 100 MG CAPSULE PO PRN (11:00)
[2017-05-14] MEDS: FAMOTIDINE 20 MG TABLET PO SCH ×2 (11:00→21:19)
[2017-05-14] MEDS ORDERED: ENALAPRILAT 1.25 MG/ML, 2ML IVPush PRN (11:00)
[2017-05-14] MEDS ORDERED: hydrALAzine 20 MG/ML, 1ML IVPush PRN (11:00)
[2017-05-14] MEDS ORDERED: BISACODYL 10 MG SUPP PR PRN (11:00)
[2017-05-14] MEDS ORDERED: HYDROmorphone 1 MG/ML, 1ML IV PRN (13:00)
[2017-05-14] MEDS ORDERED: KETOROLAC 30 MG/1 ML IV PRN (13:00)
[2017-05-14] MEDS ORDERED: ENOXAPARIN 40 MG/0.4 ML SQ SCH (13:00)
[2017-05-14] MEDS ORDERED: ONDANSETRON 2MG/ML, 2ML IV PRN (13:00)
[2017-05-14] MEDS: LACTATED RINGERS 1,000 ML IV SCH ×2 (13:50→21:19)
[2017-05-14] MEDS: OXYcodone IR 5MG TABLET PO SCH ×3 (13:50→21:19)
[2017-05-14] MEDS: METHADONE 10 MG TABLET PO SCH ×2 (16:00→21:19)
[2017-05-14] MEDS: OXYcodone/APAP 5/325MG TABLET PO PRN (16:04)
[2017-05-14] MEDS: METOPROLOL TARTRATE 50 MG TABLET PO SCH (17:31)
[2017-05-14] MEDS: LACTOBACILLUS CHEW TABLET PO SCH ×2 (17:31→21:19)
[2017-05-14 20:03] VITALS: BP 109/71
[2017-05-14] MEDS ORDERED: TRAZODONE 50MG TABLET PO PRN (21:00)
[2017-05-14] MEDS ORDERED: ZOLPIDEM 5MG TABLET PO PRN (21:00)
[2017-05-14 23:31] VITALS: BP 95/59
[2017-05-15] MEDS: OXYcodone IR 5MG TABLET PO SCH ×6 (00:44→22:43)
[2017-05-15 02:01] VITALS: BP 99/63
[2017-05-15] MEDS: OXYcodone/APAP 5/325MG TABLET PO PRN ×2 (02:10→06:23)
[2017-05-15] MEDS: LACTATED RINGERS 1,000 ML IV SCH ×3 (04:30→16:59)
[2017-05-15 04:33] VITALS: BP 93/52
[2017-05-15 05:56] LABS: HEMATOCRIT 29.3 % (34.6-47.8); HEMOGLOBIN 10.2 g/dL (11.7-16.4); WHITE BLOOD COUNT 5.4 x10^3/uL (3.4-10)
[2017-05-15 06:20] LABS: BLOOD UREA NITROGEN 23 mg/dL (7-18)
[2017-05-15] MEDS: METOPROLOL TARTRATE 50 MG TABLET PO SCH ×2 (06:23→17:33)
[2017-05-15 06:37] VITALS: BP 92/57
[2017-05-15] MEDS ORDERED: ENOXAPARIN 40 MG/0.4 ML SQ SCH (08:00)
[2017-05-15] MEDS: CEFTRIAXONE PMX 2GM/50ML 50 ML IVPB SCH (08:00)
[2017-05-15] MEDS: METHADONE 10 MG TABLET PO SCH ×3 (08:54→20:32)
[2017-05-15] MEDS: FAMOTIDINE 20 MG TABLET PO SCH ×2 (08:55→20:28)
[2017-05-15] MEDS: LISINOPRIL 10 MG TABLET PO SCH (08:56)
[2017-05-15] MEDS: ENOXAPARIN 40 MG/0.4 ML SQ SCH (08:56)
[2017-05-15] MEDS: LACTOBACILLUS CHEW TABLET PO SCH ×3 (08:56→20:28)
[2017-05-15 12:20] LABS: BLOOD UREA NITROGEN 21 mg/dL (7-18)
[2017-05-15 12:36] VITALS: BP 88/53
[2017-05-15 14:24] LABS: PATH.CAST-FLAG NOT PRESENT; SPERM-FLAG NOT PRESENT; SRC-FLAG NOT PRESENT; XTAL-FLAG NOT PRESENT; YLC-FLAG NOT PRESENT
[2017-05-15 17:31] VITALS: BP 111/71
[2017-05-15 19:30] VITALS: BP 94/60
[2017-05-16] MEDS: OXYcodone IR 5MG TABLET PO SCH ×4 (01:00→14:10)
[2017-05-16 01:40] VITALS: BP 99/65
[2017-05-16] MEDS: LACTATED RINGERS 1,000 ML IV SCH ×2 (01:53→11:54)
[2017-05-16 05:44] LABS: HEMOGLOBIN 8.9 g/dL (11.7-16.4); WHITE BLOOD COUNT 4.7 x10^3/uL (3.4-10)
[2017-05-16] MEDS: METOPROLOL TARTRATE 50 MG TABLET PO SCH (05:52)
[2017-05-16 05:53] VITALS: BP 92/62
[2017-05-16 08:22] VITALS: BP 120/71
[2017-05-16] MEDS: CEFTRIAXONE PMX 2GM/50ML 50 ML IVPB SCH (08:35)
[2017-05-16] MEDS: FAMOTIDINE 20 MG TABLET PO SCH (08:35)
[2017-05-16] MEDS: LACTOBACILLUS CHEW TABLET PO SCH (08:35)
[2017-05-16] MEDS: LISINOPRIL 10 MG TABLET PO SCH (08:35)
[2017-05-16] MEDS: ENOXAPARIN 40 MG/0.4 ML SQ SCH (08:35)
[2017-05-16] MEDS: METHADONE 10 MG TABLET PO SCH (09:24)
[2017-05-16 13:29] VITALS: BP 129/74
== END 2017-05-16 13:40 | disposition home or self-care (01) | DRG 657 ==
LOC: OUT 05:49 → EDSTATUS 07:30 → ORIP 10:36 → 4NOR 12:05
PROVIDERS: ADMIT Urology; ATTEND Urology
PROC: 0T9030Z Drainage of Right Kidney with Drainage Device, Percutaneous Approach (ICD-10-PCS; 2017-05-14)
PROC: 0TP Urinary System, Removal (ICD-10-PCS; 2017-05-14)
PROC: 0TC03ZZ Extirpation of Matter from Right Kidney, Percutaneous Approach (ICD-10-PCS; principal; 2017-05-14 07:30)
DX: C67.9 Malignant neoplasm of bladder, unspecified (principal); N11.9 Chronic tubulo-interstitial nephritis, unspecified; N17.9 Acute kidney failure, unspecified; N13.5 Crossing vessel and stricture of ureter without hydronephrosis; N20.0 Calculus of kidney; I10 Essential (primary) hypertension; D64.9 Anemia, unspecified; D72.819 Decreased white blood cell count, unspecified; J44.9 Chronic obstructive pulmonary disease, unspecified; R31.0 Gross hematuria; Z80.0 Family history of malignant neoplasm of digestive organs; Z80.1 Family history of malignant neoplasm of trachea, bronchus and lung; Z87.442 Personal history of urinary calculi; Z87.440 Personal history of urinary (tract) infections; Z87.891 Personal history of nicotine dependence; Z92.21 Personal history of antineoplastic chemotherapy; Z90.710 Acquired absence of both cervix and uterus
CPT/HCPCS: 36415; 74425; 80048; 81001; 82360; 85025; 87040; 87077; 87086; 87186; 88300; J0690; J0696; J1100; J1170; J1650; J2250; J2405; J2704; J3010; J3490; Q9967; C1727; C1758; C1769; J0330; J7120; J7512

== ENCOUNTER 2017-05-23 19:34 | Emergency (ER) | payer MEDICAID ==
[~2017-05-23] VITALS: Ht 162.6 cm; Wt 56.0 kg
[2017-05-23 21:29] LABS: HEMATOCRIT 28.5 % (34.6-47.8); HEMOGLOBIN 9.5 g/dL (11.7-16.4); WHITE BLOOD COUNT 4.6 x10^3/uL (3.4-10)
[2017-05-23 21:41] LABS: BLOOD UREA NITROGEN 14 mg/dL (7-18)
[2017-05-23 21:51] LABS: IS PT STATUS REG ER OR PRE ER? YES
[2017-05-23 22:13] VITALS: BP 98/59
== END 2017-05-23 22:48 | disposition home or self-care (01) ==
LOC: ED 21:28
DX: R60.0 Localized edema (principal); E11.9 Type 2 diabetes mellitus without complications; I10 Essential (primary) hypertension; J44.9 Chronic obstructive pulmonary disease, unspecified; Z90.710 Acquired absence of both cervix and uterus; Z88.0 Allergy status to penicillin
CPT/HCPCS: 36415; 71010; 80048; 82040; 83880; 84484; 85025; 93970; 99285

== ENCOUNTER 2017-05-27 10:09 | Inpatient (IN) | payer MEDICAID ==
[~2017-05-27] VITALS: Ht 165.1 cm; Wt 66.1 kg
[2017-05-27] MEDS ORDERED: ONDANSETRON 2MG/ML, 2ML IVPush ONE (10:30)
[2017-05-27] MEDS ORDERED: SODIUM CHLORIDE FLUSH 10ML SYR IVF ONE (10:30)
[2017-05-27] MEDS ORDERED: MORPHINE SULFATE 4 MG/ML, 1ML IVPush PRN (10:30)
[2017-05-27] MEDS ORDERED: ONDANSETRON 2MG/ML, 2ML ONE (10:48)
[2017-05-27] MEDS ORDERED: morphine SULFATE 10 MG/ML, 1ML ONE (10:51)
[2017-05-27] MEDS ORDERED: HYDROmorphone 1 MG/ML, 1ML IVPush PRN (11:00)
[2017-05-27] MEDS ORDERED: METHYLNALTREXONE 12 MG/0.6 ML SQ ONE (11:00)
[2017-05-27 11:27] LABS: HEMATOCRIT 31.2 % (34.6-47.8); HEMOGLOBIN 10.4 g/dL (11.7-16.4); WHITE BLOOD COUNT 6.9 x10^3/uL (3.4-10)
[2017-05-27 11:28] LABS: BLOOD UREA NITROGEN 20 mg/dL (7-18)
[2017-05-27] MEDS ORDERED: morphine SULFATE 10 MG/ML, 1ML IVPush ONE (12:00)
[2017-05-27] MEDS ORDERED: SODIUM CHLORIDE 0.9% 1,000 ML IV ONE (12:30)
[2017-05-27] MEDS ORDERED: ONDANSETRON 2MG/ML, 2ML IVPush PRN (13:30)
[2017-05-27] MEDS ORDERED: ZOLPIDEM 5MG TABLET PO PRN (13:30)
[2017-05-27] MEDS ORDERED: METOCLOPRAMIDE 5 MG/ML, 2ML IVPush PRN (13:30)
[2017-05-27] MEDS: HYDROmorphone 2 MG/ML, 1ML IVPush PRN ×3 (14:05→19:19)
[2017-05-27] MEDS: LACTATED RINGERS 1,000 ML IV SCH ×2 (14:06→21:48)
[2017-05-27 14:57] VITALS: BP 86/57
[2017-05-27 17:58] VITALS: BP 90/50
[2017-05-27] MEDS: LACTULOSE 10 GM/15 ML UDC PO SCH (19:19)
[2017-05-27 20:51] VITALS: BP 91/61
[2017-05-27] MEDS: LORazepam 2 MG/ML, 1ML IVPush PRN (21:45)
[2017-05-27] MEDS ORDERED: HYDROmorphone 1 MG/ML, 1ML ONE (23:57)
[2017-05-28] MEDS: HYDROmorphone 2 MG/ML, 1ML IVPush PRN ×5 (00:01→21:18)
[2017-05-28 01:49] VITALS: BP 118/77
[2017-05-28 05:24] LABS: BLOOD UREA NITROGEN 20 mg/dL (7-18)
[2017-05-28] MEDS: LORazepam 2 MG/ML, 1ML IVPush PRN (06:44)
[2017-05-28 07:01] VITALS: BP 113/74
[2017-05-28] MEDS: METHADONE 5 MG TABLET PO SCH ×3 (07:35→18:35)
[2017-05-28] MEDS: LACTATED RINGERS 1,000 ML IV SCH ×2 (07:35→15:21)
[2017-05-28] MEDS: KETOROLAC 30 MG/1 ML IVPush SCH ×3 (07:35→18:35)
[2017-05-28] MEDS: LACTULOSE 10 GM/15 ML UDC PO SCH (09:46)
[2017-05-28 12:54] VITALS: BP 108/68
[2017-05-28] MEDS: METHYLNALTREXONE 12 MG/0.6 ML SQ SCH (18:17)
[2017-05-28 18:58] VITALS: BP 151/85
[2017-05-28] MEDS ORDERED: GOLYTELY 4,000ML ORAL.SOL PO ONE (21:00)
[2017-05-29] MEDS: KETOROLAC 30 MG/1 ML IVPush SCH ×2 (00:07→06:14)
[2017-05-29] MEDS: LACTATED RINGERS 1,000 ML IV SCH ×3 (00:07→17:39)
[2017-05-29] MEDS: LORazepam 2 MG/ML, 1ML IVPush PRN ×2 (00:07→17:40)
[2017-05-29 01:10] VITALS: BP 156/93
[2017-05-29] MEDS: METHADONE 5 MG TABLET PO SCH ×4 (01:20→19:00)
[2017-05-29] MEDS: HYDROmorphone 2 MG/ML, 1ML IVPush PRN ×5 (02:01→21:37)
[2017-05-29 06:15] LABS: BLOOD UREA NITROGEN 23 mg/dL (7-18)
[2017-05-29 06:18] LABS: ASPARTATE AMINO TRANSFERASE 29 U/L (15-37)
[2017-05-29 06:52] VITALS: BP 148/83
[2017-05-29 13:40] VITALS: BP 111/70
[2017-05-29] MEDS ORDERED: MAGNESIUM CITRATE 300ML ORAL SOL PO ONE (14:53)
[2017-05-29] MEDS ORDERED: SORBITOL 70% PO PRN (19:00)
[2017-05-29 19:31] VITALS: BP 120/73
[2017-05-30 00:15] VITALS: BP 121/73
[2017-05-30] MEDS: METHADONE 5 MG TABLET PO SCH (01:00)
[2017-05-30] MEDS: HYDROmorphone 2 MG/ML, 1ML IVPush PRN ×5 (01:20→23:33)
[2017-05-30] MEDS: LACTATED RINGERS 1,000 ML IV SCH ×3 (02:00→17:38)
[2017-05-30 05:38] LABS: BLOOD UREA NITROGEN 23 mg/dL (7-18)
[2017-05-30] MEDS ORDERED: PINK LADY ENEMA 1,000 ML PR PRN (06:00)
[2017-05-30 07:38] VITALS: BP 118/67
[2017-05-30] MEDS: DOCUSATE 100 MG CAPSULE PO SCH ×2 (09:37→19:45)
[2017-05-30] MEDS: MAGNESIUM CITRATE 300ML ORAL SOL PO SCH (09:38)
[2017-05-30] MEDS: METHADONE 10 MG TABLET PO SCH ×2 (12:38→19:45)
[2017-05-30] MEDS: SORBITOL 70% PO SCH (13:00)
[2017-05-30 15:00] VITALS: BP 125/77
[2017-05-30] MEDS: METHYLNALTREXONE 12 MG/0.6 ML SQ SCH (18:42)
[2017-05-30 19:44] VITALS: BP 116/73
[2017-05-31 00:26] VITALS: BP 118/76
[2017-05-31] MEDS: LACTATED RINGERS 1,000 ML IV SCH (02:08)
[2017-05-31] MEDS: METHADONE 10 MG TABLET PO SCH ×4 (02:08→19:36)
[2017-05-31] MEDS: HYDROmorphone 2 MG/ML, 1ML IVPush PRN ×3 (06:10→15:55)
[2017-05-31 06:35] VITALS: BP 124/74
[2017-05-31] MEDS: MAGNESIUM CITRATE 300ML ORAL SOL PO SCH (09:00)
[2017-05-31] MEDS: SORBITOL 70% PO SCH (09:00)
[2017-05-31] MEDS: DOCUSATE 100 MG CAPSULE PO SCH ×2 (09:56→19:36)
[2017-05-31 14:01] VITALS: BP 125/75
[2017-05-31 18:51] VITALS: BP 145/83
[2017-06-01] MEDS: METHADONE 10 MG TABLET PO SCH ×3 (00:46→13:13)
[2017-06-01 01:20] VITALS: BP 100/63
[2017-06-01 05:20] VITALS: BP 114/76
[2017-06-01] MEDS: HYDROmorphone 2 MG/ML, 1ML IVPush PRN ×2 (05:23→15:46)
[2017-06-01] MEDS ORDERED: DOCU-131 PO (06:43)
[2017-06-01] MEDS ORDERED: MAGN296S9 PO (06:43)
[2017-06-01] MEDS: DOCUSATE 100 MG CAPSULE PO SCH (08:29)
[2017-06-01 08:30] VITALS: BP 123/76
[2017-06-01] MEDS: SORBITOL 70% PO SCH (08:30)
[2017-06-01] MEDS: MAGNESIUM CITRATE 300ML ORAL SOL PO SCH (08:33)
== END 2017-06-01 17:14 | disposition hospice, home (50) | DRG 683 ==
LOC: ED 12:05 → EDIP 12:06 → ED 12:32 → 3NE 13:56 → 3NW 20:51
PROVIDERS: ADMIT Hospitalist; ATTEND Hospitalist
DX: N17.9 Acute kidney failure, unspecified (principal); C77.9 Secondary and unspecified malignant neoplasm of lymph node, unspecified; C67.9 Malignant neoplasm of bladder, unspecified; G89.3 Neoplasm related pain (acute) (chronic); E11.9 Type 2 diabetes mellitus without complications; I10 Essential (primary) hypertension; J44.9 Chronic obstructive pulmonary disease, unspecified; K59.00 Constipation, unspecified; N13.6 Pyonephrosis; M85.80 Other specified disorders of bone density and structure, unspecified site; Z51.5 Encounter for palliative care; Z85.51 Personal history of malignant neoplasm of bladder; Z92.21 Personal history of antineoplastic chemotherapy; Z87.891 Personal history of nicotine dependence; Z90.710 Acquired absence of both cervix and uterus; Z87.442 Personal history of urinary calculi; Z88.0 Allergy status to penicillin; Z88.1 Allergy status to other antibiotic agents
CPT/HCPCS: 36415; 71010; 74000; 80048; 80053; 82040; 83880; 85025; 96374; 96375; J1170; J1885; J2405; J2930; J2060; J2270; J7120